=== PATIENT | female | born 2000 | race Caucasian/White ===

== ENCOUNTER 2023-03-09 23:18 | Emergency (ER) | payer SELFPAY | END 2023-03-09 23:50 | disposition home or self-care (01) | LOC: CC.ED 23:18 | DX: O47.1 False labor at or after 37 completed weeks of gestation (principal); Z3A.37 37 weeks gestation of pregnancy | CPT/HCPCS: 99283; 99284 ==

== ENCOUNTER 2023-05-21 10:56 | Emergency (ER) | payer SELFPAY ==
[2023-05-21 11:50] LABS: ALANINE AMINOTRANSFERASE,ALT 24 U/L (12-78); ALBUMIN 4.1 g/dL (3.4-5.0); ALKALINE PHOSPHATASE 90 U/L (46-116); ASPARTATE AMNIOTRANSFERASE,AST 20 U/L (15-37); BILIRUBIN TOTAL 0.3 mg/dL (0.0-1.0); BLOOD UREA NITROGEN,BUN 10 mg/dL (7-18); CALCIUM 9.1 mg/dL (8.4-10.1); CARBON DIOXIDE,CO2 30 mmol/L (21-32); CHLORIDE,CL 100 mEq/L (98-106); CREATININE 0.8 mg/dL (0.6-1.0); EST CRCL DRUG DOSING (CG) 91.24 mL/min; ESTIMATED GFR 107 mL/min (>=60); GLUCOSE RANDOM 103 mg/dL (75-99); MAGNESIUM 1.8 mg/dL (1.8-2.4); POTASSIUM,K 3.9 mEq/L (3.5-5.0); PROTEIN TOTAL,TP 7.6 g/dL (6.4-8.2); SODIUM,NA 137 mEq/L (136-145); TSH ULTRASENSITIVE 0.65 uIU/mL (0.36-5.60)
[2023-05-21 14:05] LABS: BASOPHILS ABSOLUTE AUTO 0.02 10^3/uL (0.00-0.50); BASOPHILS PERCENT AUTO 0.3 % (0-1); EOSINOPHILS ABSOLUTE AUTO 0.51 10^3/uL (0.00-1.50); EOSINOPHILS PERCENT AUTO 6.8 % (0-6); HEMATOCRIT 44.9 % (37.0-47.0); HEMOGLOBIN 14.9 g/dL (12.0-16.0); IMMATURE GRAN ABSOLUTE AUTO 0.01 10^3/uL (0.00-0.49); IMMATURE GRAN PERCENT AUTO 0.1 % (0.0-4.9); LYMPHOCYTES ABSOLUTE AUTO 2.89 10^3/uL (0.60-5.00); LYMPHOCYTES PERCENT AUTO 38.6 % (24-44); MEAN CORPUSCULAR HEMOGLOBIN 30.1 pg (27.0-32.0); MEAN CORPUSCULAR HGB CONC 33.2 g/dL (32.0-36.0); MEAN CORPUSCULAR VOLUME 90.7 fL (83.0-97.0); MONOCYTES ABSOLUTE AUTO 0.58 10^3/uL (0.00-1.50); MONOCYTES PERCENT AUTO 7.8 % (0-10); NEUTROPHILS ABSOLUTE AUTO 3.47 x10^3/uL (1.80-8.00); NEUTROPHILS PERCENT AUTO 46.4 % (41-71); PLATELET COUNT,PLT 319 10^3/uL (150-400); RED BLOOD CELL COUNT 4.95 x10^6/uL (4.00-5.50); WHITE BLOOD CELL COUNT,WBC 7.5 10^3/uL (4.0-11.0)
== END 2023-05-21 12:55 | disposition home or self-care (01) ==
LOC: CC.ED 10:56
DX: R07.2 Precordial pain (principal); F17.210 Nicotine dependence, cigarettes, uncomplicated
CPT/HCPCS: 36415; 71046; 80053; 83735; 84443; 84484; 85025; 85379; 93010; 99284; 99285